=== PATIENT | female | born 1990 | race Caucasian/White ===

== ENCOUNTER 2020-07-21 17:09 | Emergency (ER) | payer OTHER ==
[2020-07-21 17:25] VITALS: BP 98/64; PULSE 86; TEMP 98.3; BMI 24.2
[2020-07-21] MEDS ORDERED: ACETAMINOPHEN 500 MG TABLET (FP) PO ONE (17:54)
[2020-07-21] MEDS ORDERED: LIDOCAINE 5% TOPICAL PATCH TP ONE (18:01)
[2020-07-21] MEDS ORDERED: ACETAMINOPHEN 325 MG TABLET (FP) ONE (18:01)
[2020-07-21] MEDS ORDERED: LIDOCAINE 5% TOPICAL PATCH ONE (18:10)
--- NOTE | 2020-07-21 18:10 | PDOC ---
History of Present Illness - General Chief Complaint: Back Pain Stated Complaint: LOWER BACK PAIN/8 WKS Time Seen by Provider: 07/21/20 17:44 History Source: Patient Exam Limitations: Clinical Condition - History of Present Illness Initial Comments: 07/21/20 18:05 Patient with no significant past medical history and 8 weeks presented with complaint of lower back pain status post doing exercise yesterday and feels she might overexerting herself. Patient reported increased pain to low back when getting up from laying or sitting position. Patient has not taken anything for pain. Denies dysuria, urgency or burning with urination. Denies vaginal bleeding, fever, vomiting, shortness of breath or weakness. Denies any other symptoms Is this a multiple visit Asthma Patient?: No Timing/Duration: 1 week Past History - Medical History Allergies/Adverse Reactions: Allergies Allergy/AdvReac Type Severity Reaction Status Date / Time No Known Allergies Allergy Verified 07/21/20 17:19 Home Medications: Ambulatory Orders Lidocaine 5% Patch [Lidoderm Patch -] 1 patch TP DAILY PRN #7 patch 07/21/20 Anemia: Yes COPD: No - Reproductive History Is Patient Now?: No - Psycho-Social/Smoking History Smoking History: Never smoked Have you smoked in the past 12 months: No - Substance Abuse Hx (Audit-C & DAST Scrn) How often the patient has a drink containing alcohol: Never Score: In Men: 4 or > Positive; In Women: 3 or > Positive: 0 Screen Result (Pos requires Nsg. Audit-10AR): Negative In the last yr the pt used illegal drug/Rx for NonMed reason: No Score: Yes response is considered Positive: 0 Screen Result (Positive result requires Nsg. DAST-10): Negative Review of Systems - Review of Systems Able to Perform ROS?: Yes Is the patient limited Kiswahili proficient: No Constitutional: No: Chills, Fever, Malaise HEENTM: No: Symptoms Reported, See HPI, Eye Pain, Blurred Vision, Tearing, Recent change in vision, Double Vision, Cataracts, Ear Pain, Ocular Prothesis, Ear Discharge, Nose Pain, Nose Congestion, Tinnitus, Nose Bleeding, Hearing Loss, Throat Pain, Throat Swelling, Mouth Pain, Dental Problems, Difficulty Swallowing, Mouth Swelling, Other Respiratory: No: Symptoms reported, See HPI, Cough, Orthopnea, Shortness of Breath, SOB with Exertion, SOB at Rest, Stridor, Wheezing, Productive cough, Hemoptysis, Other Cardiac (ROS): No: Symptoms Reported, See HPI, Chest Pain, Edema, Irregular Heart Rate, Lightheadedness, Palpitations, Syncope, Chest Tightness, Other ABD/GI: No: Symptoms Reported, Nausea, Vomiting : No: Symptoms Reported, Burning, Dysuria, Discharge, Other (no vaginal bleeding) Musculoskeletal: Yes: Symptoms Reported, See HPI, Back Pain Integumentary: No: Symptoms Reported, Rash Neurological: No: Symptoms reported, Headache, Weakness, Dizziness All Other Systems: Reviewed and Negative *Physical Exam - Vital Signs Last Vital Signs Temp Pulse Resp BP Pulse Ox 98.3 F 86 16 98/64 100 07/21/20 17:19 07/21/20 17:19 07/21/20 17:19 07/21/20 17:19 07/21/20 17:19 - Physical Exam 07/21/20 18:08 GENERAL: Well developed, well nourished. Awake and alert. No acute distress. CARDIOVASCULAR: Regular rate and rhythm. No murmurs, rubs, or gallops. PULMONARY: No evidence of respiratory distress. Lungs clear to auscultation bilaterally. No wheezing, rales or rhonchi. ABDOMINAL: Soft. Non-tender. Non-distended. No rebound or guarding. No organomegaly. Normoactive bowel sounds MUSCULOSKELETAL : mild tenderness over posterior paravertebral muscle of lumbosacral spine of L4-S1 on bilateral sides. No midline tenderness. No radiculopathy. No bony deformities. No CVA tenderness bilateral. SKIN: Warm and dry. Normal capillary refill. No rashes. No jaundice. NEUROLOGICAL: Alert, awake, appropriate. No motor deficits in the lower extremities. Gait is normal without ataxia. PSYCHIATRIC: Cooperative. Good eye contact. Appropriate mood and affect. General Appearance: Yes: Nourished, Appropriately Dressed. No: Apparent Distress ED Treatment Course - RADIOLOGY Radiology Studies Ordered: Category Date Time Status <14WKS US [US] Stat Ultrasound 07/21/20 18:02 Ordered Medical Decision Making - Medical Decision Making 07/21/20 18:06 Patient with no significant past medical history and 8 weeks presented with complaint of lower back pain status post doing exercise yesterday and feels she might overexerting herself. Patient reported increased pain to low back when getting up from laying or sitting position. Patient has not taken anything for pain. Denies dysuria, urgency or burning with urination. Denies vaginal bleeding, fever, vomiting, shortness of breath or weakness. Denies any other sy mptoms Exam significant for mild tenderness to lower lumbar sacral area of L4-S1 on bilateral sides. No midline tenderness. Patient walking with normal gait. No abdominal tenderness on exam. Patient in no acute distress. Negative straight leg test. Negative CVA tenderness bilateral. Symptoms likely back strain versus less likely cystitis. UA and urine culture ordered to rule out cystitis. Tylenol 1 g p.o. and Lidoderm patch ordered for back pain. Pelvic ultrasound ordered to evaluate . Reassess after lab and imaging 07/21/20 19:05 UA shows no acute abnormality. Pelvic ultrasound shows live IUP of 7.2 weeks with heart rate. Patient reporting improvement of pain from Tylenol ladder down. Patient stable for discharge on Lidoderm p.o. for pain and Tylenol with advised to do warm compresses with PCP follow-up Discharge - Discharge Information Problems reviewed: Yes Clinical Impression/Diagnosis: 7 weeks gestation of Lower back pain Qualifiers: Chronicity: acute Back pain laterality: bilateral Sciatica presence: without sciatica Qualified Code(s): M54.5 - Low back pain Condition: Improved Disposition: HOME - Admission No - Additional Discharge Information Prescriptions: Lidocaine 5% Patch [Lidoderm Patch -] 1 patch TP DAILY PRN #7 patch PRN Reason: Back Pain - Follow up/Referral - Patient Discharge Instructions Patient Printed Discharge Instructions: DI for Low Back Pain Additional Instructions: Your ultrasound of was normal. Your urine shows no infection. The pain is likely from muscle pain. Take Tylenol as needed for pain. Use Betadine and Lidoderm as needed for back pain and do stretching exercise as discussed with heat to lower back as needed for pain. Follow-up with your primary care - Post Discharge Activity
[2020-07-21 18:35] LABS: URINE APPEARANCE CLEAR; URINE BILIRUBIN NEGATIVE (NEGATIVE); URINE COLOR DK YELLOW; URINE GLUCOSE (UA) NEGATIVE (NEGATIVE); URINE KETONE 1+ (NEGATIVE); URINE LEUK ESTERASE NEGATIVE (NEGATIVE); URINE NITRITE NEGATIVE (NEGATIVE); URINE PROTEIN TRACE (NEGATIVE)
== END 2020-07-21 20:30 | disposition home or self-care (01) ==
LOC: JER 17:09
DX: M54.5 Low back pain (principal); Z3A.08 8 weeks gestation of pregnancy
CPT/HCPCS: 76801-TC; 81003; 87086; 99284-25